=== PATIENT | male | born 1950 | race African-American/Black ===

== ENCOUNTER 2016-12-08 11:52 | Observation (INO) | payer BC, OTHER ==
[2016-12-06 12:19] LABS: BASOPHILS 0.5 %; BASOPHILS ABSOLUTE 0.02 10/3/uL (0.0-0.16); EOSINOPHILS ABSOLUTE 0.33 10/3/uL (0.0-0.53); HEMOGLOBIN 12.7 g/dL (13.6-17.8); IMMATURE GRANULOCYTES 0.2 %; IMMATURE GRANULOCYTES ABSOLUTE 0.01 10/3/uL (0.0-0.11); LYMPHOCYTES 31.2 %; LYMPHOCYTES ABSOLUTE 1.28 10/3/uL (0.67-4.30); MEAN CORPUS HGB CONC 33.8 g/dL (32.0-36.0); MEAN CORPUSCULAR VOLUME 94.7 fL (80-100); MEAN PLATELET VOLUME 10.6 fL (9.2-13.0); MONOCYTES 12.7 %; MONOCYTES ABSOLUTE 0.52 10/3/uL (0.21-1.20); NEUTROPHILS 47.4 %; NEUTROPHILS ABSOLUTE 1.94 10/3/uL (2.02-8.40); PLATELET COUNT 169 10/3/uL (150-400); RBC DISTRIBUTION WIDTH 15.1 % (12.0-16.0); RED CELL COUNT 3.97 10/6/uL (4.7-6.1); WHITE BLOOD CELLS 4.1 10/3/uL (4.5-10.5)
[2016-12-06 12:21] LABS: HEMATOCRIT 37.6 % (40.0-51.0); MANUAL DIFF NO %
[2016-12-06 12:32] LABS: CALCIUM, SERUM 8.7 MG/DL (8.5-10.4); CHLORIDE, SERUM 113 MMOL/L (96-112); CO2 (CARBON DIOXIDE) 25 MMOL/L (24-34); CREATININE 1.21 MG/DL (0.70-1.30); GFR AFRICAN AMERICAN 71 ML/MIN (>=60); GFR NON AFRICAN AMERICAN 62 ML/MIN (>=60); GLUCOSE, SERUM 80 MG/DL (60-99); POTASSIUM, SERUM 4.1 MMOL/L (3.5-5.3); SODIUM, SERUM 143 MMOL/L (135-148)
[2016-12-06 12:34] LABS: BUN (BLOOD UREA NITROGEN) 24 MG/DL (6-23)
--- NOTE | ~2016-12-08 | OP ---
Record Of Operation [facility] [address] [place]. [address] NAME: RAJWINDER CLEMENT : 48 STATUS : ADM Sophie PAT#: [id number] AGE: 66 ADM/REG DATE : 12/08/16 MR#: [id number] REPORT SERV DATE: 12/08/16 DICTATED BY: ROYCE LOYOLA III DATE: 12/08/16 REPORT STATUS : Draft TRANSCRIBED BY: MODL DATE: 12/08/16 DATE OF PROCEDURE: 12/08/2016 PROCEDURE: Cystoscopy, transurethral bladder biopsies, and transrectal prostate biopsy. PREOPERATIVE DIAGNOSES: Bladder mass, most likely prostate, and elevated PSA. POSTOPERATIVE DIAGNOSES: Bladder mass, most likely prostate, and elevated PSA. ANESTHESIA: General. DESCRIPTION OF PROCEDURE: Following induction of adequate general anesthesia, the patient was placed in dorsal lithotomy position, prepped and draped in a sterile fashion. The urethra was examined and noted to be normal. The distal prostate was small, but it extended into the bladder on both sides with what appeared to be erythematous lateral lobes. There was no significant median lobe, but there was some whitish papillary tissue on the base of the bladder, contiguous with the lateral lobe. The bladder itself was erythematous with no discrete lesions. I inspected him with a flexible scope and could not find any papillary tumors in the bladder mucosa. I placed a resectoscope in the bladder gently and took shavings of the tissue there. Hemostasis was achieved and three-way catheter was placed. Next, a transrectal probe was placed. The distal proximal prostate was fairly normal sized, however, the lateral lobes extended into the bladder and the catheter balloon was identified in the lumen of the bladder. The transrectal biopsies were done. I could not really reach the anterior portion of these even by advancing the needle into the parenchyma and then firing the biopsy needle. The biopsies were taken from the base, mid gland, and apex. The left-sided biopsies were actually more difficult to even sampling, but biopsies were sent from the left side. There was very minimal bleeding. The impression is that of a very enlarged intravesical prostate. This was described as a heterogeneous enhancing mass on the CT, but it does look to be mostly an enlarged prostate. There was some suspicious-looking tissue at the bladder neck, which I suspect is inflammatory from his intermittent catheterization. He also has an elevated PSA and some enlarged pelvic and some retroperitoneal adenopathy, which has increased since last fall. It is unclear if this is related to his prostate. We will await the biopsies, and then if they are all negative, perhaps consider biopsying a pelvic or retroperitoneal node. OB/MODL Royce Loyola III, M.D. / [id number] CC: Royce Loyola III, M.D.
[~2016-12-08 11:52] MED LIST: *DENIES; HYT1 PO; IBU400 PO; NORV10 PO; PROTONIX PO; RANITIDINE300 MG PO; SEPTRA DS1 TAB PO
== END 2016-12-09 12:57 | disposition home or self-care (01) ==
LOC: SDC 11:52 → SDC/OF 15:26 → 4SO 16:22
PROVIDERS: Urology
PROC: 0TBB8ZX Excision of Bladder, Via Natural or Artificial Opening Endoscopic, Diagnostic (ICD-10-PCS; principal; 2016-12-08 13:15)
PROC: 0VB00ZX Excision of Prostate, Open Approach, Diagnostic (ICD-10-PCS; 2016-12-08 13:15)
DX: N40.0 Benign prostatic hyperplasia without lower urinary tract symptoms (principal); R97.20 Elevated prostate specific antigen [PSA]; J45.909 Unspecified asthma, uncomplicated; G47.33 Obstructive sleep apnea (adult) (pediatric); K21.9 Gastro-esophageal reflux disease without esophagitis; F31.9 Bipolar disorder, unspecified; E78.00 Pure hypercholesterolemia, unspecified; I10 Essential (primary) hypertension; I25.10 Atherosclerotic heart disease of native coronary artery without angina pectoris; F17.210 Nicotine dependence, cigarettes, uncomplicated; Z98.890 Other specified postprocedural states; Z95.5 Presence of coronary angioplasty implant and graft
CPT/HCPCS: 76872; 76942; 80048; 85025; 88112; 88305; 88307; 88344; 93005; A9270-GY; G0378; J2250; J2270; J2405; J3010; J3370